=== PATIENT | female | born 1990 | race Caucasian/White ===

== ENCOUNTER 2017-04-11 07:08 | Emergency (ER) | payer OTHER ==
[~2017-04-11] VITALS: Ht 165.1 cm; Wt 77.5 kg
[~2017-04-11 07:08] MED LIST: PREN1TAB62 PO
[2017-04-11 07:13] VITALS: Ht 165.1 cm; Wt 77.5 kg
[2017-04-11] MEDS ORDERED: LIDOCAINE 1% (MDV) 20 ML INJ SC ONE (08:00)
[2017-04-11] MEDS ORDERED: SULF1TAB31 PO (08:46)
[2017-04-11] MEDS ORDERED: CEPH-443 PO (08:46)
[2017-04-11] MEDS ORDERED: IBUP-1542 PO (08:46)
--- NOTE | 2017-04-11 09:27 | ERD ---
ER Documentation Chief Complaint Date/Time DATE: 04/11/17 TIME: 09:17 Chief Complaint CAME IN VIA INTAKE DUE TO ABCESS WITH DRAINAGE HPI 26-year-old female complaining of painful erythematous swelling on her left buttock 5 days. The lesion has been draining pus and blood in the last few days. Her is also seen at the same time for abscess in the right groin and open sore on the right buttock. Patient denies any fever or chills. ROS All systems reviewed and are negative except as per history of present illness. Medications Home Meds Active Scripts Ibuprofen* (Motrin*) 600 Mg Tab, 600 MG PO Q6H Y for PAIN AND OR ELEVATED TEMP, #30 TAB Prov:TAMARA VILLARREAL [employer] 04/11/17 Cephalexin* (Keflex*) 500 Mg Capsule, 500 MG PO QID for 7 Days, CAP Prov:TAMARA VILLARREAL NP 04/11/17 Sulfamethoxazole/Trimethoprim* (Bactrim Ds* Tablet) 1 Each Tablet, 1 TAB PO BID , #14 TAB Prov:TAMARA VILLARREAL [employer] 04/11/17 Reported Medications Vit-Iron Fumarate-FA ( Vitamin Tablet) 1 Each Tablet, 1 TAB PO DAILY, TAB 05/08/16 Allergies Allergies: Coded Allergies: No Known Allergy (Unverified , 05/08/16) PMhx/Soc Medical and Surgical Hx: pt denies Medical Hx, pt denies Surgical Hx Hx Alcohol Use: Yes Hx Substance Use: No Hx Tobacco Use: No Physical Exam Vitals Vital Signs Date Time Temp Pulse Resp B/P Pulse Ox O2 Delivery O2 Flow Rate FiO2 04/11/17 07:13 98.6 76 18 118/67 98 Physical Exam General: Well-developed, well-nourished, conscious and coherent, in no distress Skin: Warm and dry without rash, good texture and turgor. A 2 cm erythematous and indurated lesion noted on the left buttock, with slight serosanguineous drainage. Head: Normocephalic without evidence of trauma Eyes: Sclera and conjunctivae normal; pupils equal, round, and reactive to light; extraocular movements are intact Chest: Normal AP diameter. Good expansion without retractions. Nontender. Lungs are clear to auscultate bilaterally with good tidal volume Heart: Regular rate and rhythm. No murmur, rub, or gallops heard Extremities: Full range of motion. Good strength bilaterally. No clubbing, cyanosis, or edema. Peripheral pulses are intact. Sensation intact Neuro: Alert and oriented 4, GCS 15. Cranial nerves grossly intact. Motor and sensory exams nonfocal. Moves all extremities. Speech clear. Gait normal Results 24 hrs Current Medications Medications (Trade) Dose Ordered Sig/Kofi Route PRN Reason Start Time Stop Time Status Last Admin Dose Admin Lidocaine (Xylocaine 1% (Mdv) 20 ml) 20 ml ONCE ONCE SC 04/11/17 08:00 04/11/17 08:01 DC Procedures/MDM Procedure note: Incision and Drainage Verbal consent obtained for incision and drainage of patient's abscess. The area was prepped with Betadine. Lidocaine 1% was infiltrated for local anesthesia. After appropriate anesthesia, incision was made using #11 blade. Small amount of purulent discharge was drained from the abscess. The abscess was probed for loculation. The wound was then cleaned and dressed. Patient tolerated procedure well. Patient is well-appearing, I doubt sepsis or necrotizing fasciitis. I suspect that abscess is due to MRSA infection, as her also has similar abscesses. Patient appears well, stable for discharge and outpatient management. Medical decision making shared with patient and family. Education provided to patient and family. Patient and family expressed understanding of the plan. Medications on discharge: Keflex, Bactrim DS, ibuprofen. Follow-up: Return to eating 2 days for wound check Disclaimer: Inadvertent spelling and grammatical errors are likely due to EHR/ dictation software use and do not reflect on the overall quality of patient care. Also, please note that the electronic time recorded on this note does not necessarily reflect the actual time of the patient encounter. Departure Diagnosis: Primary Impression: Abscess Condition: Stable Patient Instructions: Abscess, Incision And Drainage Referrals: [facility] (PCP) Additional Instructions: Regrese a estas instalaciones dentro de DOS SPICER para un examen de seguimiento.Regrese antes si naik condicin se empeora. TAMARA VILLARREAL NP Apr 11, 2017 09:27
== END 2017-04-11 08:54 | disposition left against medical advice (07) ==
LOC: FTE 07:08
DX: L02.31 Cutaneous abscess of buttock (principal); R40.2412 Glasgow coma scale score 13-15, at arrival to emergency department
CPT/HCPCS: 10060; Z7610